=== PATIENT | male | born 1965 | race Caucasian/White ===

== ENCOUNTER 2020-11-21 00:18 | Emergency (ER) | payer BC ==
[2020-11-21] MEDS ORDERED: MORPHINE SULFATE 4 MG INJ IV ONE (00:59)
[2020-11-21] MEDS ORDERED: Reglan 10 MG/2 ML IV ONE (00:59)
[2020-11-21] MEDS ORDERED: BENADRYL 50 MG/ML IV ONE (01:00)
--- NOTE | 2020-11-21 01:05 | ERPHSYRPT ---
- History of Present Illness Time Seen by Provider: 11/21/20 00:51 Source: patient Exam Limitations: no limitations Patient Subjective Stated Complaint: pt states he had nasal surgery on saturday at [facility]. states today he has the smell of the mask in his nose and has been unable to eat and has been vomiting all day. Triage Nursing Assessment: pt alert and oriented, answers questions approp. pt ambulatory with steady gait noted. respirations nonlabored. abd soft and nontender to light palpation. bowel sounds hyper x all 4 quads. Physician History: 55 years old male with recent sinus surgery at [facility] 2 days ago presented in the ER with chief complaint of nausea/dry heaving and having smell of mask used to put him to sleep while surgery. Patient reports having couple of episodes of vomiting and dry heaving and does not want to eat or drink anything because of the worsening smell. Denies any abdominal pain. Has minimal nasal bleed since surgery which is expected. Denies any chest pain palpitations or shortness of breath. No fever or chills Timing/Duration: yesterday Severity: moderate Modifying Factors: Improves With: nothing Associated Symptoms: nausea, vomiting Allergies/Adverse Reactions: No Known Drug Allergies Allergy (Verified 11/21/20 00:50) Home Medications: Lansoprazole [Prevacid] 30 mg PO DAILY 04/11/16 [History] Montelukast Sodium [Singulair] 10 mg PO DAILY 04/11/16 [History] Pravastatin Sodium [Pravachol] 80 mg PO DAILY 04/11/16 [History] Celecoxib [Celebrex] 200 mg PO BID 11/21/20 [History] Metaxalone [Skelaxin] 800 mg PO Q6H PRN PRN 11/21/20 [History] Metoprolol Succinate 100 mg [Toprol Xl 100 MG] 100 mg PO DAILY 11/21/20 [History] Oxycodone HCl/Acetaminophen [Percocet 10-325 mg Tablet] 1 each PO QID 11/21/20 [History] Tamsulosin HCl 0.4 mg [Flomax 0.4 MG] 0.4 mg PO DAILY 11/21/20 [History] Hx Tetanus, Diphtheria Vaccination/Date Given: Yes Hx Influenza Vaccination/Date Given: No Hx Pneumococcal Vaccination/Date Given: No Immunizations Up to Date: Yes Travel Risk - International Travel Have you traveled outside of the country in past 3 weeks: No - Coronavirus Screening Are you exhibiting any of the following symptoms?: Yes Symptoms: Vomiting/Diarrhea, Loss of Taste or Smell Close contact with a COVID-19 positive Pt in past 14-21 Days: No - Vaccine Status Have you recieved a Covid-19 vaccination: No - Review of Systems Constitutional: Fatigue Eyes: No Symptoms Ears, Nose, & Throat: Nose Congestion, Sinus Drainage, Epistaxis Respiratory: No Symptoms Cardiac: No Symptoms Abdominal/Gastrointestinal: Nausea, Vomiting Genitourinary Symptoms: No Symptoms Musculoskeletal: Back Pain (Chronic) Skin: No Symptoms Neurological: No Symptoms Psychological: No Symptoms Endocrine: No Symptoms Hematologic/Lymphatic: No Symptoms Immunological/Allergic: No Symptoms - Past Medical History Pertinent Past Medical History: Yes Cardiac History: Hypertension Musculoskeletal History: Degenerative Disk Disease, Osteoarthritis GI Medical History: GERD Other Medical History: chronic back pain - Past Surgical History Past Surgical History: Yes Gastrointestinal: Appendectomy, Cholecystectomy, Hernia Repair Musculoskeletal: Orthopedic Surgery Other Surgical History: mult back surgeries, implanted pain pump, rcr - Social History Smoking Status: Never smoker Exposure to second hand smoke: No Drug Use: none Patient Lives Alone: Yes - Nursing Vital Signs Nursing Vital Signs: Initial Vital Signs Temperature 98.4 F 11/21/20 00:30 Pulse Rate 81 11/21/20 00:30 Respiratory Rate 16 11/21/20 00:30 Blood Pressure 177/108 11/21/20 00:30 O2 Sat by Pulse Oximetry 100 11/21/20 00:30 Pain Scale Pain Intensity 5 - Physical Exam General Appearance: no apparent distress, alert Eye Exam: PERRL/EOMI, eyes nml inspection Ears, Nose, Throat Exam: moist mucous membranes, pharyngeal erythema Neck Exam: normal inspection, supple, full range of motion Respiratory Exam: normal breath sounds, lungs clear Cardiovascular Exam: regular rate/rhythm, normal heart sounds Gastrointestinal/Abdomen Exam: soft, normal bowel sounds, No tenderness, No dist ention, No guarding Back Exam: normal inspection, normal range of motion Extremity Exam: normal inspection, normal range of motion Neurologic Exam: alert, oriented x 3, cooperative Skin Exam: normal color SpO2 Interpretation: normal SpO2: 100 O2 Delivery: Room Air Ordered Tests: Active Orders 24 hr Category Date Time Status IV Insertion STAT Care 10/11/21 00:59 Active CBC W DIFF Stat Lab 11/21/20 01:17 Completed CMP Stat Lab 11/21/20 01:17 Completed LIPASE Stat Lab 11/21/20 01:17 Completed Medication Summary Discontinued Medications Generic Name Dose Route Start Last Admin Trade Name Gaq PRN Reason Stop Dose Admin Diphenhydramine HCl 25 mg 11/21/20 01:00 11/21/20 01:17 Benadryl 50 Mg/Ml IV 11/21/20 01:01 25 mg STAT ONE Administration Diphenhydramine HCl Confirm 11/21/20 01:15 Benadryl 50 Mg/Ml Administered 11/21/20 01:16 Dose 50 mg .ROUTE .STK-MED ONE Sodium Chloride 1,000 mls @ 999 mls/hr 11/21/20 01:55 11/21/20 02:59 Sodium Chloride 0.9% 1000 Ml IV 11/21/20 02:55 Infused .Q1H1M STA Infusion Sodium Chloride Confirm 11/21/20 01:56 Sodium Chloride 0.9% 1000 Ml Administered 11/21/20 01:57 Dose 1,000 mls @ ud .ROUTE .STK-MED ONE Metoclopramide HCl 10 mg 11/21/20 00:59 11/21/20 01:17 Reglan 10 Mg/2 Ml IV 11/21/20 01:00 10 mg STAT ONE Administration Metoclopramide HCl Confirm 11/21/20 01:16 Reglan 10 Mg/2 Ml Administered 11/21/20 01:17 Dose 10 mg .ROUTE .STK-MED ONE Morphine Sulfate 4 mg 11/21/20 00:59 11/21/20 01:17 Morphine Sulfate 4 Mg Inj IV 11/21/20 01:00 4 mg STAT ONE Administration Morphine Sulfate Confirm 11/21/20 01:15 Morphine Sulfate 4 Mg Inj Administered 11/21/20 01:16 Dose 4 mg .ROUTE .STK-MED ONE Ondansetron HCl 4 mg 11/21/20 01:55 11/21/20 02:00 Zofran 4 Mg/2 Ml Vial IV 11/21/20 01:56 4 mg STAT ONE Administration Ondansetron HCl Confirm 11/21/20 01:56 Zofran 4 Mg/2 Ml Vial Administered 11/21/20 01:57 Dose 4 mg .ROUTE .STK-MED ONE Lab/Rad Data: Laboratory Result Diagrams 11/21/20 01:17 11/21/20 01:17 Laboratory Results 11/21/20 11/21/20 Range/Units 01:17 01:17 WBC 9.2 (4.0-10.5) K/mm3 RBC 5.04 (4.1-5.6) M/mm3 Hgb 14.5 (12.5-18.0) gm/dl Hct 43.8 (42-50) % MCV 86.9 (78-100) fl MCH 28.8 (26-32) pg MCHC 33.1 (32-36) g/dl RDW 13.1 (11.5-14.0) % Plt Count 308 (150-450) K/mm3 MPV 10.4 (7.5-11.0) fl Gran % 66.8 H (36.0-66.0) % Eos # (Auto) 0.14 (0-0.5) Absolute Lymphs (auto) 1.82 (1.0-4.6) Absolute Monos (auto) 1.08 (0.0-1.3) Lymphocytes % 19.7 L (24.0-44.0) % Monocytes % 11.7 (0.0-12.0) % Eosinophils % 1.5 (0.00-5.0) % Basophils % 0.3 (0.0-0.4) % Absolute Granulocytes 6.17 (1.4-6.9) Basophils # 0.03 (0-0.4) Sodium 140 (137-145) mmol/L Potassium 3.6 (3.5-5.1) mmol/L Chloride 105 (98-107) mmol/L Carbon Dioxide 24 (22-30) mmol/L Anion Gap 14.6 (5-15) MEQ/L BUN 9 (9-20) mg/dL Creatinine 0.67 (0.66-1.25) mg/dL Estimated GFR > 60.0 ML/MIN Glucose 98 (74-106) mg/dL Calcium 9.3 (8.4-10.2) mg/dL Total Bilirubin 0.40 (0.2-1.3) mg/dL AST 32 (17-59) U/L ALT 54 H (0-50) U/L Alkaline Phosphatase 99 (38-126) U/L Serum Total Protein 8.0 (6.3-8.2) g/dL Albumin 4.5 (3.5-5.0) g/dL Lipase 53 (23-300) U/L - Progress Progress Note: 11/21/20 03:42 Patient received Reglan and Benadryl and Zofran along with fluid bolus. Nausea is better, no vomiting while in the ER. Patient has stable baseline work-up. Still does have some sense of smelling of the mass. I have obtained operative report and there was nothing placed in sinuses. I do not know the exact reason for this I know smell which patient is feeling but could be due to formation in the area. No difficulty breathing. Recommended follow-up with his primary ENT in the morning if it does not improve. Will give Zofran to go home. Discussed signs symptoms of worsening needing return to ER which he seems understanding. 11/21/20 03:44 Counseled pt/family regarding: lab results, diagnosis, need for follow-up - Departure Departure Disposition: Home Clinical Impression: Postoperative nausea and vomiting Condition: Stable Critical Care Time: No Referrals: BIRGIT LEMOS MD [Primary Care Provider] - (In 1 to 2 days for reevaluation) KELY KOROMA DO [NON-STAFF PHY W/O PRIVILEGES] - (Call in the morning for reevaluation) Instructions: Nausea and Vomiting, Adult (DC) Additional Instructions: Drink plenty of fluids. Take Zofran as needed. Call your ENT in the morning for reevaluation and discuss change in smell sensation. Follow-up with primary care for reevaluation of nausea/vomiting. Return to ER for any worsening. Prescriptions: Ondansetron ODT 4 MG [Zofran Odt 4 mg] 4 mg PO Q6H PRN PRN #7 tablet PRN Reason: Vomiting
[2020-11-21] MEDS ORDERED: BENADRYL 50 MG/ML ONE (01:15)
[2020-11-21] MEDS ORDERED: MORPHINE SULFATE 4 MG INJ ONE (01:15)
[2020-11-21] MEDS ORDERED: Reglan 10 MG/2 ML ONE (01:16)
[2020-11-21 01:20] LABS: Absolute Neutrophil Ct (ANC) 6.17 (1.4-6.9); BASOPHIL % 0.3 % (0.0-0.4); Basophil (Absolute #) 0.03 (0-0.4); Eosinophil % 1.5 % (0.00-5.0); Eosinophil (Absolute #) 0.14 (0-0.5); Hematocrit 43.8 % (42-50); Hemoglobin 14.5 gm/dl (12.5-18.0); Lymphocyte (Absolute #) 1.82 (1.0-4.6); Lymphocytes % 19.7 % (24.0-44.0); Mean Cell Volume 86.9 fl (78-100); Mean Corpuscular Hemoglobin 28.8 pg (26-32); Mean Corpuscular Hgb Concent. 33.1 g/dl (32-36); Mean Platelet Volume 10.4 fl (7.5-11.0); Monocyte (Absolute #) 1.08 (0.0-1.3); Monocytes % 11.7 % (0.0-12.0); Neutrophil % 66.8 % (36.0-66.0); Platelet Count 308 K/mm3 (150-450); Red Blood Count 5.04 M/mm3 (4.1-5.6); Red Cell Distribution Width 13.1 % (11.5-14.0); White Blood Count 9.2 K/mm3 (4.0-10.5)
[2020-11-21 01:33] LABS: ALBUMIN 4.5 g/dL (3.5-5.0); ALKALINE PHOSPHATASE 99 U/L (38-126); ANION GAP 14.6 MEQ/L (5-15); BLOOD UREA NITROGEN 9 mg/dL (9-20); CHLORIDE 105 mmol/L (98-107); Calcium 9.3 mg/dL (8.4-10.2); Carbon Dioxide 24 mmol/L (22-30); Creatinine 1 0.67 mg/dL (0.66-1.25); EST GLOMERULAR FILTRATION RATE > 60.0 ML/MIN; Glucose 98 mg/dL (74-106); LIPASE 53 U/L (23-300); Potassium 3.6 mmol/L (3.5-5.1); SGOT/AST 32 U/L (17-59); SGPT/ALT 54 U/L (0-50); SODIUM 140 mmol/L (137-145)
[2020-11-21] MEDS ORDERED: Zofran 4 MG/2 ML VIAL IV ONE (01:55)
[2020-11-21] MEDS ORDERED: Sodium Chloride 0.9% 1000 ML 1,000 ML IV STA (01:55)
[2020-11-21] MEDS ORDERED: Sodium Chloride 0.9% 1000 ML 1,000 ML ONE (01:56)
[2020-11-21] MEDS ORDERED: Zofran 4 MG/2 ML VIAL ONE (01:56)
[2020-11-21 04:01] VITALS: BP 157/80; PULSE 74; O2SAT 98
== END 2020-11-21 04:00 | disposition home or self-care (01) ==
LOC: ED 00:18
DX: R11.2 Nausea with vomiting, unspecified (principal); Z98.890 Other specified postprocedural states
CPT/HCPCS: 36000; 36415; 80053; 83690; 85025; 96360; 96374; 96375; 99284; J1200; J2270; J2405

== ENCOUNTER 2020-11-25 18:50 | Emergency (ER) | payer BC ==
[2020-11-25 19:52] LABS: Absolute Neutrophil Ct (ANC) 8.18 (1.4-6.9); BASOPHIL % 0.4 % (0.0-0.4); Basophil (Absolute #) 0.05 (0-0.4); Eosinophil % 0.7 % (0.00-5.0); Eosinophil (Absolute #) 0.09 (0-0.5); Hematocrit 43.1 % (42-50); Hemoglobin 14.5 gm/dl (12.5-18.0); Lymphocyte (Absolute #) 3.24 (1.0-4.6); Lymphocytes % 24.2 % (24.0-44.0); Mean Corpuscular Hemoglobin 29.6 pg (26-32); Mean Corpuscular Hgb Concent. 33.6 g/dl (32-36); Mean Platelet Volume 10.5 fl (7.5-11.0); Monocyte (Absolute #) 1.81 (0.0-1.3); Monocytes % 13.5 % (0.0-12.0); Neutrophil % 61.2 % (36.0-66.0); Platelet Count 351 K/mm3 (150-450); Red Cell Distribution Width 13.2 % (11.5-14.0); White Blood Count 13.4 K/mm3 (4.0-10.5)
[2020-11-25 20:04] LABS: ALBUMIN 4.8 g/dL (3.5-5.0); ALKALINE PHOSPHATASE 97 U/L (38-126); ANION GAP 17.3 MEQ/L (5-15); BLOOD UREA NITROGEN 18 mg/dL (9-20); CHLORIDE 103 mmol/L (98-107); Calcium 9.5 mg/dL (8.4-10.2); Carbon Dioxide 22 mmol/L (22-30); Creatinine 1 0.81 mg/dL (0.66-1.25); EST GLOMERULAR FILTRATION RATE > 60.0 ML/MIN; Glucose 105 mg/dL (74-106); MAGNESIUM 2.2 mg/dL (1.6-2.3); NT PRO BNP 23.2 pg/mL (0-900); Potassium 3.6 mmol/L (3.5-5.1); SGOT/AST 28 U/L (17-59); SGPT/ALT 41 U/L (0-50); SODIUM 139 mmol/L (137-145)
--- NOTE | 2020-11-25 20:17 | ERPHSYRPT ---
- History of Present Illness Time Seen by Provider: 11/25/20 19:10 Source: patient Exam Limitations: no limitations Patient Subjective Stated Complaint: SOB and dizziness today Triage Nursing Assessment: pt to ED c/o sudden onset SOB and dizziness while working at the [employer] pt has been at this ED and [facility] ED for these same sx in the last week, both visits have been inconclusive. pt denies pain at this time and states that sx have subsided since leaving work. "I felt like I was going to or pass out right there, but I do feel normal now." Physician History: This is a 55-year-old white male patient of Dr. Lemos who has history of prostate issues, elevated cholesterol, hypertension, COPD and gastroesophageal reflux disease. Patient recently underwent a sinus surgery. He was seen in our emergency department on 11/21/2020 and was diagnosed with postoperative nausea vomiting following that procedure. Patient was at work today and he felt very dizzy with some chest pain symptoms. He came to the emergency room and he stated that his symptoms have completely resolved and he feels he is at his nor mal baseline. Patient states that he had 2 episodes of the same thing last week and was seen at [facility] emergency department. They were no significant diagnoses provided the patient. Timing/Duration: today Severity: mild (Now completely resolved) Associated Symptoms: shortness of breath, other (Dizziness) Allergies/Adverse Reactions: No Known Drug Allergies Allergy (Verified 11/25/20 18:59) Home Medications: Lansoprazole [Prevacid] 30 mg PO DAILY 04/11/16 [History] Montelukast Sodium [Singulair] 10 mg PO DAILY 04/11/16 [History] Pravastatin Sodium [Pravachol] 80 mg PO DAILY 04/11/16 [History] Celecoxib [Celebrex] 200 mg PO BID 11/21/20 [History] Metaxalone [Skelaxin] 800 mg PO Q6H PRN PRN 11/21/20 [History] Metoprolol Succinate 100 mg [Toprol Xl 100 MG] 100 mg PO DAILY 11/21/20 [History] Oxycodone HCl/Acetaminophen [Percocet 10-325 mg Tablet] 1 each PO QID 11/21/20 [History] Tamsulosin HCl 0.4 mg [Flomax 0.4 MG] 0.4 mg PO DAILY 11/21/20 [History] Hx Tetanus, Diphtheria Vaccination/Date Given: Yes Hx Influenza Vaccination/Date Given: Yes Hx Pneumococcal Vaccination/Date Given: No Immunizations Up to Date: Yes Travel Risk - International Travel Have you traveled outside of the country in past 3 weeks: No - Coronavirus Screening Are you exhibiting any of the following symptoms?: Yes Symptoms: Shortness of Breath Close contact with a COVID-19 positive Pt in past 14-21 Days: No - Vaccine Status Have you recieved a Covid-19 vaccination: No - Review of Systems Constitutional: No Symptoms Eyes: No Symptoms Ears, Nose, & Throat: No Symptoms Respiratory: Dyspnea (Has now completely resolved) Cardiac: No Symptoms Abdominal/Gastrointestinal: No Symptoms Genitourinary Symptoms: No Symptoms, Penile Discharge Musculoskeletal: No Symptoms Skin: No Symptoms Neurological: Dizziness Psychological: No Symptoms Endocrine: No Symptoms Hematologic/Lymphatic: No Symptoms Immunological/Allergic: No Symptoms All Other Systems: Reviewed and Negative - Past Medical History Pertinent Past Medical History: Yes Cardiac History: Hypertension Musculoskeletal History: Degenerative Disk Disease, Osteoarthritis GI Medical History: GERD Other Medical History: chronic back pain - Past Surgical History Past Surgical History: Yes Gastrointestinal: Appendectomy, Cholecystectomy, Hernia Repair Musculoskeletal: Orthopedic Surgery Other Surgical History: mult back surgeries, implanted pain pump, rcr - Social History Smoking Status: Never smoker Exposure to second hand smoke: No Drug Use: none Patient Lives Alone: Yes - Nursing Vital Signs Nursing Vital Signs: Initial Vital Signs Temperature 98.0 F 11/25/20 18:52 Pulse Rate 86 11/25/20 18:52 Respiratory Rate 18 11/25/20 18:52 Blood Pressure 175/103 11/25/20 18:52 O2 Sat by Pulse Oximetry 97 11/25/20 18:52 Pain Scale Pain Intensity 0 - Physical Exam General Appearance: no apparent distress, alert, anxiety Eye Exam: PERRL/EOMI, eyes nml inspection Ears, Nose, Throat Exam: normal ENT inspection, moist mucous membranes Neck Exam: normal inspection, non-tender, supple, full range of motion Respiratory Exam: normal breath sounds, lungs clear, respiratory distress, airway intact, No chest tenderness Cardiovascular Exam: regular rate/rhythm, normal heart sounds, normal peripheral pulses Gastrointestinal/Abdomen Exam: soft, normal bowel sounds, No tenderness Rectal Exam: not done Back Exam: normal inspection, normal range of motion, No CVA tenderness, No vertebral tenderness Extremity Exam: normal inspection, normal range of motion, pelvis stable Neurologic Exam: alert, oriented x 3, cooperative, 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 No comparison EKG available) Ordered Tests: Active Orders 24 hr Category Date Time Status EKG-ER Only STAT Care 11/25/20 19:09 Active IV Insertion STAT Care 11/25/20 19:09 Active CHEST 1 VIEW (PORTABLE) Stat Exams 11/25/20 19:11 Taken CBC W DIFF Stat Lab 11/25/20 19:35 Completed CMP Stat Lab 11/25/20 19:35 Completed MAGNESIUM Stat Lab 11/25/20 19:35 Completed NT PRO BNP Stat Lab 11/25/20 19:35 Completed TROPONIN Q3H Lab 11/25/20 19:35 Completed TROPONIN Q3H Lab 11/25/20 22:15 Ordered TROPONIN Q3H Lab 11/26/20 01:15 Ordered TROPONIN Q3H Lab 11/26/20 04:15 Ordered TROPONIN Q3H Lab 11/26/20 07:15 Ordered Lab/Rad Data: Laboratory Result Diagrams 11/25/20 19:35 11/25/20 19:35 Laboratory Results 11/25/20 11/25/20 11/25/20 Range/Units 19:35 19:35 19:35 WBC 13.4 H (4.0-10.5) K/mm3 RBC 4.90 (4.1-5.6) M/mm3 Hgb 14.5 (12.5-18.0) gm/dl Hct 43.1 (42-50) % MCV 88.0 (78-100) fl MCH 29.6 (26-32) pg MCHC 33.6 (32-36) g/dl RDW 13.2 (11.5-14.0) % Plt Count 351 (150-450) K/mm3 MPV 10.5 (7.5-11.0) fl Gran % 61.2 (36.0-66.0) % Eos # (Auto) 0.09 (0-0.5) Absolute Lymphs (auto) 3.24 (1.0-4.6) Absolute Monos (auto) 1.81 H (0.0-1.3) Lymphocytes % 24.2 (24.0-44.0) % Monocytes % 13.5 H (0.0-12.0) % Eosinophils % 0.7 (0.00-5.0) % Basophils % 0.4 (0.0-0.4) % Absolute Granulocytes 8.18 H (1.4-6.9) Basophils # 0.05 (0-0.4) Sodium 139 (137-145) mmol/L Potassium 3.6 (3.5-5.1) mmol/L Chloride 103 (98-107) mmol/L Carbon Dioxide 22 (22-30) mmol/L Anion Gap 17.3 H (5-15) MEQ/L BUN 18 (9-20) mg/dL Creatinine 0.81 (0.66-1.25) mg/dL Estimated GFR > 60.0 ML/MIN Glucose 105 (74-106) mg/dL Calcium 9.5 (8.4-10.2) mg/dL Magnesium 2.2 (1.6-2.3) mg/dL Total Bilirubin 0.50 (0.2-1.3) mg/dL AST 28 (17-59) U/L ALT 41 (0-50) U/L Alkaline Phosphatase 97 (38-126) U/L Troponin I < 0.012 (0.000-0.034) ng/mL NT-Pro-B Natriuret Pep 23.2 (0-900) pg/mL Serum Total Protein 8.0 (6.3-8.2) g/dL Albumin 4.8 (3.5-5.0) g/dL - Progress Progress: improved Progress Note: 11/25/20 20:37 Chest x-ray shows no acute cardiopulmonary process 11/25/20 20:42 Chest x-ray shows no acute cardiopulmonary process. Medical decision making: This patient had some shortness of breath and dizziness that spontaneously resolved. He has had a few episodes of this since his sinus surgery. He has mild leukocytosis today. Remainder of his work-up is negative. We will treat him for sinusitis which may be contributing to his symptoms. We will give him a few days off work so he can follow-up with his ear nose and throat surgeon as well as his primary care physician. Counseled pt/family regarding: lab results, diagnosis, need for follow-up, rad results - Departure Departure Disposition: Home Clinical Impression: Shortness of breath, Dizziness, Sinusitis Condition: Stable Critical Care Time: No Referrals: BIRGIT LEMOS MD [Primary Care Provider] - Additional Instructions: Take all your medication as prescribed. Follow-up with your primary care physician or ear nose and throat surgeon on 11/28/2020. Forms: Work/School Release Form Prescriptions: Prednisone 10 mg [Deltasone 10 mg] 10 mg PO TID #12 tablet Azithromycin 250 mg [Zithromax 250 MG TABLET] 250 mg PO DAILY #4 tablet
[2020-11-25 20:21] VITALS: BP 145/87; PULSE 72
[2020-11-25 20:39] VITALS: O2SAT 98
[2020-11-25] MEDS ORDERED: Zithromax 250 MG TABLET PO ONE (20:40)
[2020-11-25] MEDS ORDERED: DELTASONE 20 MG PO ONE (20:42)
[2020-11-25] MEDS ORDERED: Zithromax 250 MG TABLET ONE (20:49)
[2020-11-25] MEDS ORDERED: DELTASONE 20 MG ONE (20:49)
--- NOTE | 2020-11-25 23:33 | XRAY ---
Indication: Short of breath. Comparison: February 28, 2010. Portable chest demonstrates stable right lower lobe calcified granuloma. Remaining heart and lungs unremarkable. Bony thorax intact again with mild degenerative changes. No new/acute findings.
== END 2020-11-25 21:13 | disposition home or self-care (01) ==
LOC: ED 18:50
DX: R06.02 Shortness of breath (principal); R42 Dizziness and giddiness; J32.9 Chronic sinusitis, unspecified
CPT/HCPCS: 36415; 71045; 80053; 83735; 83880; 84484; 85025; 93005; 99284; A9270-GY

== ENCOUNTER 2022-07-25 11:12 | Emergency (ER) | payer BC, OTHER ==
--- NOTE | 2022-07-25 12:21 | XRAY ---
Indication: Midabdomen pain, vomiting, and diarrhea. Multiple contiguous axial images obtained through the abdomen and pelvis without contrast. Comparison: None Lung bases clear with incidental right lower lobe calcified granuloma. Heart not enlarged. Noncontrasted stomach and bowel loops appear nonobstructed. Minimal radiopacities throughout colon either ingested medication/bismuth or barium. Appendectomy and cholecystectomy reported. Nonobstructing punctate calculus in each kidney. Tiny hepatic/splenic calcified granulomas. No free fluid/air. Remaining liver, pancreas, spleen, adrenal glands, kidneys, ureters, and bladder are unremarkable for noncontrast exam. Minimal aortoiliac calcifications without AAA. Osseous structures intact with minimal/mild degenerative changes throughout the spine. Left lower back epidural stimulator device with single lead. Impression: 1. Nonobstructing bilateral renal punctate calculus, minimal arteriosclerotic disease, chronic bony findings, and old granulomatous disease. 2. Remaining CT abdomen/pelvis without contrast exam is negative.
[2022-07-25 12:29] LABS: Appearance Clear (Clear); Bacteria None Seen /HPF (None Seen); Bilirubin Negative (Negative); Blood Negative (Negative); Epithelial Cells None Seen /HPF (None Seen); Glucose, Urine Negative (Negative); Hyaline Casts NONE SEEN /LPF (0-2); Ketones Negative (Negative); Leukocyte Esterase Negative (Negative); Nitrite Negative (Negative); Protein,Urine Dip Negative (Negative); RBC 0-2 /HPF (0-5); Specific Gravity >=1.030 (1.005-1.030); Urobilinogen 0.2 mg/dL (0.2); WBC 0-2 /HPF (0-5)
[2022-07-25 12:32] LABS: ADD URINE CULTURE? NO (NO)
[2022-07-25 12:39] LABS: Absolute Neutrophil Ct (ANC) 6.18 x10^3/uL (1.4-6.9); BASOPHIL % 0.7 % (0.0-0.4); Basophil (Absolute #) 0.07 x10^3/uL (0-0.4); Eosinophil % 1.4 % (0.00-5.0); Eosinophil (Absolute #) 0.14 x10^3/uL (0-0.5); Hematocrit 44.6 % (42-50); Hemoglobin 14.9 g/dL (12.5-18.0); IMMATURE GRAN # 0.03 x10^3u/L (0.00-0.03); IMMATURE GRAN % 0.3 % (0.00-0.4); Lymphocyte (Absolute #) 2.48 x10^3/uL (1.0-4.6); Lymphocytes % 25.3 % (24.0-44.0); Mean Cell Volume 90.8 fL (78-100); Mean Corpuscular Hemoglobin 30.3 pg (26-32); Mean Corpuscular Hgb Concent. 33.4 g/dL (32-36); Mean Platelet Volume 10.6 fL (7.5-11.0); Monocyte (Absolute #) 0.89 x10^3/uL (0.0-1.3); Monocytes % 9.1 % (0.0-12.0); Neutrophil % 63.2 % (36.0-66.0); Platelet Count 303 x10^3/uL (150-450); Red Blood Count 4.91 x10^6/uL (4.1-5.6); Red Cell Distribution Width 12.6 % (11.5-14.0); White Blood Count 9.8 x10^3/uL (4.0-10.5)
--- NOTE | 2022-07-25 12:41 | ERPHSYRPT ---
- History of Present Illness Historian: patient Exam Limitations: no limitations Patient Subjective Stated Complaint: Pt c/o of medial epigastric pain for the past week Triage Nursing Assessment: Pt drove self to the ER, hypertensive, rates pain as 8/10, states that the pain wakes him up, pt feels like he may have an ulcer, pulses normal, skin n/w/d, pain w/palpatation to the upper medial abdomen, pt states that he feels like his abdomen is "filled up with an air compressor", last bm this AM and states that it was liquid, last intake this AM, doesn't appear to be in any distress Physician History: 57 yo WM w epigastric pain x 1week. Pain is 9/10 and described as "burning". Pain is 9/10, and nothing makes it better or worse. Nausea/vomiting earlier in the course has subsided. He has mild diarrhea but denies fever/melena/hematochezia/dysuria/hematuria/chest pain/dyspnea. He has hypertension/hyperlipidemia/dilaudid pain pump. Cholecyst ectomy/appendectomy/ventral hernia repair in the past. he does not smoke and drinks 1 mixed drink a day. Timing/Duration: other (1 week) Quality: burning Abdominal Pain Onset Location: epigastric Pain Radiation: no radiation Modifying Factors: Improves With: nothing Associated Symptoms: denies symptoms, nausea, vomiting Previous symptoms: no prior history Allergies/Adverse Reactions: No Known Drug Allergies Allergy (Verified 07/25/22 11:29) Home Medications: Montelukast Sodium [Singulair] 10 mg PO DAILY 04/11/16 [History] Pravastatin Sodium [Pravachol] 80 mg PO DAILY 04/11/16 [History] Celecoxib [Celebrex] 200 mg PO BID 11/21/20 [History] Metaxalone [Skelaxin] 800 mg PO QID 11/21/20 [History] Oxycodone HCl/Acetaminophen [Percocet 10-325 mg Tablet] 1 each PO QID 11/21/20 [History] Tamsulosin HCl 0.4 mg [Flomax 0.4 MG] 0.4 mg PO DAILY 11/21/20 [History] Amlodipine Besylate 5 mg [Norvasc 5 mg] 5 mg PO DAILY 07/25/22 [History] Gabapentin [Neurontin ] 100 mg PO TID 07/25/22 [History] Levothyroxine Sodium 25 mcg PO DAILY 07/25/22 [History] Lisinopril/Hydrochlorothiazide [Lisinopril-Hctz 20-12.5 mg Tab] 1 each PO DAILY 07/25/22 [History] Metoprolol Tartrate [Lopressor] 100 mg PO BID 07/25/22 [History] Pantoprazole 20 mg [Protonix 20MG Tablet] 20 mg PO DAILY 07/25/22 [History] Simvastatin 20Mg [Zocor 20Mg] 20 mg PO DAILY 07/25/22 [History] Hx Tetanus, Diphtheria Vaccination/Date Given: Yes Hx Influenza Vaccination/Date Given: Yes Hx Pneumococcal Vaccination/Date Given: No Travel Risk - International Travel Have you traveled outside of the country in past 3 weeks: No - Coronavirus Screening Are you exhibiting any of the following symptoms?: No Close contact with a COVID-19 positive Pt in past 14-21 Days: No - Vaccine Status Have you recieved a Covid-19 vaccination: No - Review of Systems Constitutional: No Symptoms Eyes: No Symptoms Ears, Nose, & Throat: No Symptoms Respiratory: No Symptoms Cardiac: No Symptoms Abdominal/Gastrointestinal: No Symptoms, Abdominal Pain, Diarrhea Genitourinary Symptoms: No Symptoms Musculoskeletal: No Symptoms Skin: No Symptoms Neurological: No Symptoms Psychological: No Symptoms Endocrine: No Symptoms Hematologic/Lymphatic: No Symptoms Immunological/Allergic: No Symptoms - Past Medical History Pertinent Past Medical History: Yes Cardiac History: Hypertension Musculoskeletal History: Degenerative Disk Disease, Osteoarthritis GI Medical History: GERD Other Medical History: chronic back pain - Past Surgical History Past Surgical History: Yes Gastrointestinal: Appendectomy, Cholecystectomy, Hernia Repair Musculoskeletal: Orthopedic Surgery Other Surgical History: mult back surgeries, implanted pain pump, rcr - Social History Smoking Status: Never smoker Exposure to second hand smoke: No Drug Use: none Patient Lives Alone: Yes Significant Family History: no pertinent family hx - Nursing Vital Signs Nursing Vital Signs: Initial Vital Signs Temperature 96.8 F 07/25/22 11:19 Pulse Rate 71 07/25/22 11:19 Blood Pressure 160/97 07/25/22 11:19 O2 Sat by Pulse Oximetry 98 07/25/22 11:19 Pain Scale Pain Intensity 5 Hypertensive - Physical Exam General Appearance: no apparent distress Eye Exam: PERRL/EOMI, eyes nml inspection Ears, Nose, Throat Exam: normal ENT inspection, TMs normal, pharynx normal, moist mucous membranes Neck Exam: normal inspection, non-tender, supple, full range of motion, No meningismus, No mass, No Brudzinski, No Kernig's, No carotid bruit Respiratory Exam: normal breath sounds, lungs clear, No respiratory distress, No airway intact Cardiovascular Exam: regular rate/rhythm, normal heart sounds, normal peripheral pulses, capillary refill <2 sec, No murmur Gastrointestinal/Abdomen Exam: soft, tenderness (Moderate epigastric TTP/Distended/Hypoactive bowel sounds/No guarding or rebound) Extremity Exam: normal inspection, normal range of motion Neurologic Exam: alert, oriented x 3, 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, 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, normal mood/affect, nml cerebellar function, nml station & gait, sensation nml Skin Exam: normal color, warm, dry Lymphatic Exam: No adenopathy SpO2 Interpretation: normal SpO2: 98 O2 Delivery: Room Air - Course Nursing assessment & vital signs reviewed: Yes EKG Interpreted by Me: RATE (NSR/Rate 66/Normal QT-QTc/No acute ST segment changes/Normal Twaves) - CT Exams Abdomen/Pelvis CT Interpretation: Discussed w/radiologist (CT tg-pdpswc-Mtatenb acute) Ordered Tests: Active Orders 24 hr Category Date Time Status EKG-ER Only STAT Care 07/25/22 11:53 Completed IV Insertion STAT Care 07/25/22 11:26 Completed ABDOMEN AND PELVIS W/0 CONTRAS [CT] Stat Exams 07/25/22 11:53 Completed AMYLASE Stat Lab 07/25/22 12:30 Completed CBC W DIFF Stat Lab 07/25/22 12:30 Completed CMP Stat Lab 07/25/22 12:30 Completed LIPASE Stat Lab 07/25/22 12:30 Completed Lactic Acid Stat Lab 07/25/22 12:50 Completed Lactic Acid Stat Lab 07/25/22 14:57 Stop Req TROPONIN Q4H Lab 07/25/22 12:30 Completed UA W/RFX UR CULTURE Stat Lab 07/25/22 11:58 Completed Lab/Rad Data: Laboratory Result Diagrams 07/25/22 12:30 07/25/22 12:30 Laboratory Results 07/25/22 07/25/22 07/25/22 Range/Units 12:50 12:30 12:30 WBC (4.0-10.5) x10^3/uL RBC (4.1-5.6) x10^6/uL Hgb (12.5-18.0) g/dL Hct (42-50) % MCV (78-100) fL MCH (26-32) pg MCHC (32-36) g/dL RDW (11.5-14.0) % Plt Count (150-450) x10^3/uL MPV (7.5-11.0) fL Gran % (36.0-66.0) % Immature Gran % (Auto) (0.00-0.4) % Nucleat RBC Rel Count (0.00-0.1) % Eos # (Auto) (0-0.5) x10^3/uL Immature Gran # (Auto) (0.00-0.03) x10^3u/L Absolute Lymphs (auto) (1.0-4.6) x10^3/uL Absolute Monos (auto) (0.0-1.3) x10^3/uL Absolute Nucleated RBC (0.00-0.01) x10^3u/L Lymphocytes % (24.0-44.0) % Monocytes % (0.0-12.0) % Eosinophils % (0.00-5.0) % Basophils % (0.0-0.4) % Absolute Granulocytes (1.4-6.9) x10^3/uL Basophils # (0-0.4) x10^3/uL Sodium 141 (137-145) mmol/L Potassium 3.9 (3.5-5.1) mmol/L Chloride 105 (98-107) mmol/L Carbon Dioxide 22 (22-30) mmol/L Anion Gap 18.2 H (5-15) MEQ/L BUN 15 (9-20) mg/dL Creatinine 0.75 (0.66-1.25) mg/dL Estimated GFR > 60.0 ML/MIN Glucose 108 H (74-106) mg/dL Lactic Acid 1.9 (0.4-2.0) Calcium 10.9 H (8.4-10.2) mg/dL Total Bilirubin 0.80 (0.2-1.3) mg/dL AST 35 (17-59) U/L ALT 46 (0-50) U/L Alkaline Phosphatase 76 (38-126) U/L Troponin I < 0.012 (0.000-0.034) ng/mL Serum Total Protein 8.5 H (6.3-8.2) g/dL Albumin 4.6 (3.5-5.0) g/dL Amylase 70 (30-110) U/L Lipase 154 (23-300) U/L Urine Color (Yellow) Urine Appearance (Clear) Urine pH (4.6-8.0) Ur Specific [place] (1.005-1.030) Urine Protein (Negative) Urine Glucose (UA) (Negative) mg/dL Urine Ketones (Negative) Urine Blood (Negative) Urine Nitrite (Negative) Urine Bilirubin (Negative) Urine Urobilinogen (0.2) mg/dL Ur Leukocyte Esterase (Negative) U Hyaline Cast (Auto) (0-2) /LPF Urine Microscopic RBC (0-5) /HPF Urine Microscopic WBC (0-5) /HPF Ur Epithelial Cells (None Seen) /HPF Urine Bacteria (None Seen) /HPF Urine Culture Reflexed (NO) 07/25/22 07/25/22 Range/Units 12:30 11:58 WBC 9.8 (4.0-10.5) x10^3/uL RBC 4.91 (4.1-5.6) x10^6/uL Hgb 14.9 (12.5-18.0) g/dL Hct 44.6 (42-50) % MCV 90.8 (78-100) fL MCH 30.3 (26-32) pg MCHC 33.4 (32-36) g/dL RDW 12.6 (11.5-14.0) % Plt Count 303 (150-450) x10^3/uL MPV 10.6 (7.5-11.0) fL Gran % 63.2 (36.0-66.0) % Immature Gran % (Auto) 0.3 (0.00-0.4) % Nucleat RBC Rel Count 0.0 (0.00-0.1) % Eos # (Auto) 0.14 (0-0.5) x10^3/uL Immature Gran # (Auto) 0.03 (0.00-0.03) x10^3u/L Absolute Lymphs (auto) 2.48 (1.0-4.6) x10^3/uL Absolute Monos (auto) 0.89 (0.0-1.3) x10^3/uL Absolute Nucleated RBC 0.00 (0.00-0.01) x10^3u/L Lymphocytes % 25.3 (24.0-44.0) % Monocytes % 9.1 (0.0-12.0) % Eosinophils % 1.4 (0.00-5.0) % Basophils % 0.7 (0.0-0.4) % Absolute Granulocytes 6.18 (1.4-6.9) x10^3/uL Basophils # 0.07 (0-0.4) x10^3/uL Sodium (137-145) mmol/L Potassium (3.5-5.1) mmol/L Chloride (98-107) mmol/L Carbon Dioxide (22-30) mmol/L Anion Gap (5-15) MEQ/L BUN (9-20) mg/dL Creatinine (0.66-1.25) mg/dL Estimated GFR ML/MIN Glucose (74-106) mg/dL Lactic Acid (0.4-2.0) Calcium (8.4-10.2) mg/dL Total Bilirubin (0.2-1.3) mg/dL AST (17-59) U/L ALT (0-50) U/L Alkaline Phosphatase (38-126) U/L Troponin I (0.000-0.034) ng/mL Serum Total Protein (6.3-8.2) g/dL Albumin (3.5-5.0) g/dL Amylase (30-110) U/L Lipase (23-300) U/L Urine Color Yellow (Yellow) Urine Appearance Clear (Clear) Urine pH 5.0 (4.6-8.0) Ur Specific [place] >=1.030 A (1.005-1.030) Urine Protein Negative (Negative) Urine Glucose (UA) Negative (Negative) mg/dL Urine Ketones Negative (Negative) Urine Blood Negative (Negative) Urine Nitrite Negative (Negative) Urine Bilirubin Negative (Negative) Urine Urobilinogen 0.2 (0.2) mg/dL Ur Leukocyte Esterase Negative (Negative) U Hyaline Cast (Auto) NONE SEEN (0-2) /LPF Urine Microscopic RBC 0-2 (0-5) /HPF Urine Microscopic WBC 0-2 (0-5) /HPF Ur Epithelial Cells None Seen (None Seen) /HPF Urine Bacteria None Seen (None Seen) /HPF Urine Culture Reflexed NO (NO) - Progress Progress Note: 07/25/22 16:01 Nursing note and vital signs reviewed No food or housing insecurities noted All lab results reviewed and shared w pt CT ab-pelvis result reviewed and shared w pt Etiology of pain unclear, but no evidence of acute abdomen at this time. Will start pt on Bentyl and have pt continue Protonix. 07/25/22 16:10 Counseled pt/family regarding: lab results, diagnosis, need for follow-up, rad results Medical Desision Making - Diagnostic Testing Radiological Interpretation: Reviewed by me, Discussed w/ radiologist - Risk of complications The pt has a mod risk of morbidity or mortality based on: Need for prescription drug management - Departure Departure Disposition: Home Clinical Impression: Abdominal pain Condition: Stable Critical Care Time: No Referrals: BIRGIT LEMOS MD [Primary Care Provider] - Follow up/PCP as directed Instructions: Severe Abdominal Pain, Adult (DC) Additional Instructions: Bentyl as needed for pain Continue with Protonix Follow up with Dr. Lemos in 1-2 days Return to ER for increasing pain or temperature greater than 100.5 Prescriptions: Dicyclomine HCl 20 mg [Bentyl 20 mg] 20 mg PO QID PRN PRN #15 tablet PRN Reason: Pain
[2022-07-25 13:02] LABS: ALBUMIN 4.6 g/dL (3.5-5.0); ALKALINE PHOSPHATASE 76 U/L (38-126); AMYLASE 70 U/L (30-110); ANION GAP 18.2 MEQ/L (5-15); BLOOD UREA NITROGEN 15 mg/dL (9-20); CHLORIDE 105 mmol/L (98-107); Calcium 10.9 mg/dL (8.4-10.2); Carbon Dioxide 22 mmol/L (22-30); Creatinine 1 0.75 mg/dL (0.66-1.25); EST GLOMERULAR FILTRATION RATE > 60.0 ML/MIN; Glucose 108 mg/dL (74-106); LIPASE 154 U/L (23-300); Potassium 3.9 mmol/L (3.5-5.1); SGOT/AST 35 U/L (17-59); SGPT/ALT 46 U/L (0-50); SODIUM 141 mmol/L (137-145); Total Protein 8.5 g/dL (6.3-8.2)
[2022-07-25 13:24] VITALS: BP 142/82; PULSE 68
[2022-07-25 16:05] VITALS: O2SAT 98
== END 2022-07-25 13:29 | disposition home or self-care (01) ==
LOC: ED 11:12
DX: R10.13 Epigastric pain (principal); R19.7 Diarrhea, unspecified; I10 Essential (primary) hypertension; Z79.899 Other long term (current) drug therapy; Z28.310 Unvaccinated for COVID-19
CPT/HCPCS: 36000; 36415; 74176; 80053; 81001; 82150; 83605; 83690; 84484; 85025; 93005; 99284

== ENCOUNTER 2023-10-07 17:21 | Emergency (ER) | payer OTHER | END 2023-10-07 19:11 | disposition left against medical advice (07) | LOC: ED 17:21 | DX: Z53.21 Procedure and treatment not carried out due to patient leaving prior to being seen by health care provider (principal) | CPT/HCPCS: 99281 ==